=== PATIENT | male | born 1980 | race Caucasian/White ===

== ENCOUNTER 2019-08-29 12:19 | Emergency (ER) | payer BC ==
[2019-08-29 12:30] VITALS: BP 143/96
[2019-08-29] MEDS ORDERED: MIDODRINE HCL10 MG PO (13:27)
[2019-08-29] MEDS ORDERED: MOBIC7.5 MG PO (13:36)
== END 2019-08-29 14:08 | disposition home or self-care (01) ==
LOC: ED 12:19
DX: S90.01XA Contusion of right ankle, initial encounter (principal); V86.59XA Driver of other special all-terrain or other off-road motor vehicle injured in nontraffic accident, initial encounter; Y93.89 Activity, other specified; V91.89XA Other injury due to other accident to unspecified watercraft, initial encounter